=== PATIENT | male | born 1965 | race Asian ===

== ENCOUNTER 2022-11-03 09:47 | Inpatient (IN) | payer MEDICAID, OTHER ==
[2022-11-03] VITALS (15 sets, daily range): BP systolic 53–148; BP diastolic 25–82
[~2022-11-03 09:47] MED LIST: ATOR20TA86; NOCURR
[2022-11-03] MEDS ORDERED: NALOXONE HCL 1 MG/ML 2 ML SYRINGE ONE ×2 (09:54→09:58)
[2022-11-03] MEDS ORDERED: ETOMIDATE 2 MG/ML 10 ML VIAL ONE (09:55)
[2022-11-03] MEDS ORDERED: SODIUM CHLORIDE 0.9% 100 ML ONE (10:09)
[2022-11-03] MEDS ORDERED: IOHEXOL 350 MG/ML 100 ML VIAL ONE (10:09)
[2022-11-03] MEDS ORDERED: PHENYLEPHRINE HCL IN 0.9% NACL 400 MCG/10 ML SYRINGE IVP ONE (10:14)
[2022-11-03] MEDS ORDERED: SODIUM CHLORIDE 0.9% 1,000 ML IV ONE (10:15)
[2022-11-03] MEDS ORDERED: PROPOFOL 1000 MG/ISO-OSM 100 ML IV PRN (10:15)
[2022-11-03] MEDS ORDERED: ETOMIDATE 2 MG/ML 10 ML VIAL IVP ONE (10:15)
[2022-11-03] MEDS ORDERED: ROCURONIUM BROMIDE 10 MG/ML 5 ML VIAL IVP ONE (10:15)
[2022-11-03] MEDS ORDERED: NOREPINEPHRINE 8 MG/D5%-WATER 250 ML IV PRN (10:15)
[2022-11-03] MEDS ORDERED: PHENYLEPHRINE 200 MG/D5%-WATER 250 ML IV PRN (10:45)
[2022-11-03 11:20] LABS: ABG BASE EXCESS 8.2 mmol/L (-2.0-3.0); ABG CARBOXYHEMOGLOBIN 0.3 % (0.0-1.5); ABG HCO3 31.2 mmol/L (22.0-26.0); ABG METHEMOGLOBIN 0.4 % (0.0-1.5); ABG OXYGEN CONTENT 11.1 mL/dL (15.0-23.0); ABG OXYGEN SATURATION 99.1 % (95.0-98.0); ABG OXYHEMOGLOBIN 98.4 % (94.0-100.0); ABG PCO2 68 mmHg (35-45); ABG PH 7.323 (7.35-7.450); ABG TOTAL HEMOGLOBIN 6.9 G/dL (12.0-18.0); O2 DEVICE,BLOOD GAS VENTILATOR (ROOM AIR); PEEP,BG 5 cm H2O; PO2, ARTERIAL BG 523.4 mmHg (84.0-92.0); SITE, BLOOD GAS RT FEMORAL; SOURCE, BLOOD GAS ARTERIAL; SPONTANEOUS VT, BG 453 ml; TEMPERATURE, FAHRENHEIT, BG 97.8 FAHREN (96.0-98.6); VT, ABG 450 ml
[2022-11-03 11:33] LABS: CREATININE 1.53 mg/dL (0.60-1.30); POTASSIUM 4.3 mmol/L (3.5-5.1)
[2022-11-03 11:38] LABS: ALBUMIN 1.5 g/dL (3.4-5.0); BASOPHILS % (AUTO) 0.4 % (0.0-2.0); BILIRUBIN,TOTAL 0.1 mg/dL (0.1-1.0); EOSINOPHILS % (AUTO) 0.7 % (1.0-6.0); LYMPHOCYTES # (AUTO) 1.5 K/uL (1.0-4.8); LYMPHOCYTES % (AUTO) 8.7 % (22.0-44.0); MEAN CORPUSCULAR HEMOGLOBIN 29.1 pg (26.0-34.0); MEAN CORPUSCULAR HGB CONC 30.7 G/dL (31.0-37.0); MEAN CORPUSCULAR VOLUME 95 fL (80-100); MONOCYTES # (AUTO) 0.8 K/uL (0.1-1.0); MONOCYTES % (AUTO) 4.8 % (2.0-9.0); NEUTROPHILS # (AUTO) 14.4 K/uL (1.8-7.7); PLATELET COUNT (AUTO) 217 K/uL (150-450); RED BLOOD CELL COUNT(AUTO) 2.16 MIL/uL (4.50-5.90); TOTAL PROTEIN, SERUM 3.1 g/dL (6.4-8.2)
[2022-11-03 11:44] LABS: HEMATOCRIT 20.5 % (41-53); HEMOGLOBIN 6.3 g/dL (13.5-17.5); NEUTROPHILS % (AUTO) 85.4 % (40.0-70.0)
[2022-11-03 11:45] LABS: LACTIC ACID 13.8 mmol/L (0.4-2.0)
[2022-11-03] MEDS ORDERED: INSULIN LISPRO 100 UNITS/ML SQ PRN (11:45)
[2022-11-03] MEDS ORDERED: ACETAMINOPHEN 325 MG TABLET PO PRN (11:45)
[2022-11-03] MEDS ORDERED: ONDANSETRON HCL 4 MG/2 ML VIAL IVP PRN (11:45)
[2022-11-03] MEDS ORDERED: DEXTROSE 50%-WATER 25 GM/50 ML SYRINGE IVP PRN (11:45)
[2022-11-03 11:55] LABS: INR 1.4 (0.9-1.1); PROTHROMBIN TIME 14.2 SEC (9.4-11.6)
[2022-11-03] MEDS ORDERED: PIPERACILLIN/TAZO 3.375 GM/D5W 50 ML IV SCH (12:00)
[2022-11-03] MEDS: VASOPRESSIN 40 UNITS in DEXTROSE 5%-WATER 98 ML IV PRN ×2 (12:02→21:47)
[2022-11-03] MEDS ORDERED: OCTREOTIDE ACETATE 100 MCG/ML VIAL IVP ONE (12:15)
[2022-11-03] MEDS: OCTREOTIDE ACETATE 500 MCG in SODIUM CHLORIDE 0.9% 97.5 ML IV SCH ×2 (12:49→22:15)
[2022-11-03] MEDS: PANTOPRAZOLE SODIUM 80 MG in SODIUM CHLORIDE 0.9% 100 ML IV SCH ×2 (12:49→21:47)
[2022-11-03] MEDS: PIPERACILLIN/TAZO 3.375 GM/D5W 50 ML IV SCH ×2 (12:50→18:57)
[2022-11-03 13:27] LABS: COVID AG,FIA SOURCE NASAL SWAB
[2022-11-03 13:34] LABS: ABG BASE EXCESS -13.7 mmol/L (-2.0-3.0); ABG CARBOXYHEMOGLOBIN 0.3 % (0.0-1.5); ABG HCO3 14.3 mmol/L (22.0-26.0); ABG METHEMOGLOBIN 0.3 % (0.0-1.5); ABG OXYGEN CONTENT 18.1 mL/dL (15.0-23.0); ABG OXYGEN SATURATION 99.5 % (95.0-98.0); ABG OXYHEMOGLOBIN 98.9 % (94.0-100.0); ABG PCO2 38 mmHg (35-45); ABG TOTAL HEMOGLOBIN 12.1 G/dL (12.0-18.0); PO2, ARTERIAL BG 455.6 mmHg (84.0-92.0); SOURCE, BLOOD GAS ARTERIAL; TEMPERATURE, FAHRENHEIT, BG 93.8 FAHREN (96.0-98.6)
[2022-11-03 13:35] LABS: ABG PH 7.195 (7.35-7.450); SITE, BLOOD GAS ARTERIAL LINE
[2022-11-03 13:36] LABS: ABG A-A DIFF O2 225.7 mmHg (10-20.0); O2 DEVICE,BLOOD GAS VENTILATOR (ROOM AIR); PEEP,BG 5 cm H2O; SPONTANEOUS VT, BG 447 ml; VT, ABG 450 ml
[2022-11-03] MEDS ORDERED: ERYTHROMYCIN LACTOBIONATE 250 MG in SODIUM CHLORIDE 0.9% 100 ML IV ONE (14:45)
[2022-11-03 15:27] LABS: APPEARANCE,URINE HAZY (CLEAR); BILIRUBIN,URINE NEGATIVE (NEGATIVE); GLUCOSE, URINE (UA) 70-100 mg/dL (NEGATIVE); KETONES,URINE NEGATIVE (NEGATIVE); LEUKOCYTE ESTERASE ,URINE NEGATIVE (NEGATIVE); NITRATE,URINE NEGATIVE (NEGATIVE); OCCULT BLOOD,URINE MODERATE (NEGATIVE); PH,URINE 5.5 (5.0-8.0); PROTEIN,URINE 100-200,SEE CONFIRM mg/dL (NEGATIVE); SPECIFIC GRAVITIY, URINE 1.016 (1.003-1.030); UROBILINOGEN,URINE <=1.0 mg/dL (<=1.0)
[2022-11-03] MEDS ORDERED: SODIUM CHLORIDE 0.9% 500 ML IV ONE (15:30)
[2022-11-03 15:36] LABS: CALCIUM, TOTAL 7.5 mg/dL (8.8-10.5); CREATININE 1.83 mg/dL (0.60-1.30); MAGNESIUM 2.2 mg/dL (1.80-2.40); PHOSPHORUS 8.7 mg/dL (2.5-4.9)
[2022-11-03 15:49] LABS: BACTERIA,URINE Few /HPF (None Seen); SQUAMOUS EPITHELIAL CELL,UR Few /LPF (None Seen); WBC,URINE 0-2 /HPF (0-5)
[2022-11-03 15:50] LABS: POTASSIUM 6.9 mmol/L (3.5-5.1)
[2022-11-03 15:50] LABS: SULFOSALICYLIC ACID,URINE 2+ (Negative)
[2022-11-03 15:59] LABS: AMPHET/METH SCREEN,URINE NEGATIVE (NEGATIVE); BARBITURATE SCREEN, URINE NEGATIVE (NEGATIVE); BENZODIAZEPINES SCREEN,URINE NEGATIVE (NEGATIVE); CANNABINOID SCREEN,URINE NEGATIVE (NEGATIVE); COCAINE SCREEN,URINE NEGATIVE (NEGATIVE); METHADONE SCREEN, URINE NEGATIVE (NEGATIVE); OPIATE SCREEN,URINE NEGATIVE (NEGATIVE)
[2022-11-03] MEDS ORDERED: SODIUM BICARBONATE [ADULT] 8.4% 50 MEQ/50 ML SYRINGE IVP ONE ×3 (16:00→21:30)
[2022-11-03] MEDS ORDERED: DEXTROSE 50%-WATER 25 GM/50 ML SYRINGE IVP ONE (16:00)
[2022-11-03] MEDS ORDERED: CALCIUM GLUCONATE 0.465 MEQ/ML 10 ML VIAL IVP ONE (16:00)
[2022-11-03] MEDS ORDERED: INSULIN REGULAR, HUMAN 100 UNITS/ML IVP ONE (16:00)
[2022-11-03 16:02] LABS: PHENCYCLIDINE SCREEN,URINE NEGATIVE (NEGATIVE)
[2022-11-03] MEDS: SODIUM CHLORIDE 0.9% 1,000 ML IV SCH ×2 (16:13→19:43)
[2022-11-03 16:15] LABS: HEMATOCRIT 34.5 % (41-53)
[2022-11-03 17:14] LABS: BASOPHILS % (AUTO) 0.3 % (0.0-2.0); EOSINOPHILS % (AUTO) 0 % (1.0-6.0); HEMATOCRIT 27.4 % (41-53); HEMOGLOBIN 8.7 g/dL (13.5-17.5); LYMPHOCYTES # (AUTO) 1.2 K/uL (1.0-4.8); MEAN CORPUSCULAR HEMOGLOBIN 28.7 pg (26.0-34.0); MEAN CORPUSCULAR HGB CONC 31.6 G/dL (31.0-37.0); MEAN CORPUSCULAR VOLUME 91 fL (80-100); MONOCYTES # (AUTO) 1.1 K/uL (0.1-1.0); MONOCYTES % (AUTO) 5.6 % (2.0-9.0); NEUTROPHILS # (AUTO) 17.2 K/uL (1.8-7.7); RED BLOOD CELL COUNT(AUTO) 3.01 MIL/uL (4.50-5.90)
[2022-11-03 17:21] LABS: NEUTROPHILS % (AUTO) 88.1 % (40.0-70.0)
[2022-11-03] MEDS: EPINEPHrine 2 MG in DEXTROSE 5%-WATER 248 ML IV PRN ×2 (17:49→21:49)
[2022-11-03 17:51] LABS: PLATELET COUNT (AUTO) 151 K/uL (150-450)
[2022-11-03] MEDS: ALBUMIN HUMAN 25%-25GM/100ML 100 ML IV SCH (20:07)
[2022-11-03 20:37] LABS: ALBUMIN 1.5 g/dL (3.4-5.0); BILIRUBIN,TOTAL 0.3 mg/dL (0.1-1.0); CALCIUM, TOTAL 7.5 mg/dL (8.8-10.5); CREATININE 1.91 mg/dL (0.60-1.30); TOTAL PROTEIN, SERUM 2.9 g/dL (6.4-8.2)
[2022-11-03 20:41] LABS: POTASSIUM 6.1 mmol/L (3.5-5.1)
[2022-11-03] MEDS ORDERED: CALCIUM GLUCONATE 100 MG/ML 10 ML IVP ONE ×2 (21:30→23:45)
[2022-11-03] MEDS ORDERED: ALBUMIN HUMAN 25%-50GM/200ML 200 ML IV ONE (21:30)
[2022-11-03] MEDS ORDERED: POTASSIUM CHLORIDE 10 MEQ in NXSTAGE RFP-402 K0/CA3 5,000 ML IRRIG PRN (21:45)
[2022-11-03] MEDS: DOPamine 400MG/D5W[STANDARD] 250 ML IV PRN (22:31)
[2022-11-04] VITALS (16 sets, daily range): BP systolic 57–109; BP diastolic 27–64
[2022-11-04] MEDS: EPINEPHrine 2 MG in DEXTROSE 5%-WATER 248 ML IV PRN ×12 (00:03→17:50)
[2022-11-04] MEDS ORDERED: SODIUM CHLORIDE 0.9% 250 ML IV ONE ×2 (00:07→08:36)
[2022-11-04] MEDS: PIPERACILLIN/TAZO 3.375 GM/D5W 50 ML IV SCH ×4 (00:25→17:49)
[2022-11-04] MEDS ORDERED: CALCIUM GLUCONATE 100 MG/ML 10 ML IVP ONE (00:45)
[2022-11-04] MEDS: ALBUMIN HUMAN 25%-25GM/100ML 100 ML IV SCH ×3 (01:42→14:18)
[2022-11-04] MEDS ORDERED: PHENYLEPHRINE 200 MG/D5%-WATER 250 ML IV PRN (03:00)
[2022-11-04] MEDS ORDERED: VASOPRESSIN 40 UNITS in DEXTROSE 5%-WATER 98 ML IV PRN (03:00)
[2022-11-04] MEDS: NOREPINEPHRINE 8 MG/D5%-WATER 250 ML IV PRN ×5 (03:16→16:40)
[2022-11-04 04:26] LABS: GLUCOSE,POINT OF CARE 462 MG/DL (70-110)
[2022-11-04 06:50] LABS: MEAN CORPUSCULAR HEMOGLOBIN 29.9 pg (26.0-34.0); MEAN CORPUSCULAR HGB CONC 32.6 G/dL (31.0-37.0); MEAN CORPUSCULAR VOLUME 92 fL (80-100); PLATELET COUNT (AUTO) 40 K/uL (150-450); RED BLOOD CELL COUNT(AUTO) 0.96 MIL/uL (4.50-5.90); RED CELL DISTRIBUTION WIDTH 15.4 % (11.5-14.5)
[2022-11-04 07:00] LABS: HEMOGLOBIN 2.9 g/dL (13.5-17.5)
[2022-11-04 07:01] LABS: HEMATOCRIT 8.8 % (41-53)
[2022-11-04 07:07] LABS: ALBUMIN 2.1 g/dL (3.4-5.0); BILIRUBIN,TOTAL 0.4 mg/dL (0.1-1.0); CREATININE 1.93 mg/dL (0.60-1.30); TOTAL PROTEIN, SERUM 2.8 g/dL (6.4-8.2)
[2022-11-04 07:10] LABS: POTASSIUM 2.9 mmol/L (3.5-5.1)
[2022-11-04 08:00] LABS: BAND NEUTROPHILS % (MANUAL) 10 % (0-5); EOSINOPHILS % (MANUAL) 3 % (1-6); LYMPHOCYTES % (MANUAL) 14 % (22-44); MONOCYTES % (MANUAL) 4 % (2-9); SEGMENTED NEUTROPHILS % 69 % (40-70)
[2022-11-04] MEDS: OCTREOTIDE ACETATE 500 MCG in SODIUM CHLORIDE 0.9% 97.5 ML IV SCH ×2 (08:15→17:53)
[2022-11-04] MEDS: PANTOPRAZOLE SODIUM 80 MG in SODIUM CHLORIDE 0.9% 100 ML IV SCH ×2 (08:33→17:53)
[2022-11-04 08:54] LABS: HEMATOCRIT 7.2 % (41-53); HEMOGLOBIN 2.4 g/dL (13.5-17.5)
[2022-11-04] MEDS ORDERED: POTASSIUM CHLORIDE 20 MEQ in NXSTAGE RFP-402 K0/CA3 5,000 ML IRRIG PRN (10:40)
[2022-11-04] MEDS ORDERED: PHYTONADIONE 5 MG in SODIUM CHLORIDE 0.9% 50 ML IV ONE (10:45)
[2022-11-04 11:22] LABS: ABG BASE EXCESS -9.4 mmol/L (-2.0-3.0); ABG CARBOXYHEMOGLOBIN 1.3 % (0.0-1.5); ABG HCO3 17.3 mmol/L (22.0-26.0); ABG METHEMOGLOBIN 0.3 % (0.0-1.5); ABG OXYGEN CONTENT 7.8 mL/dL (15.0-23.0); ABG OXYGEN SATURATION 99.8 % (95.0-98.0); ABG OXYHEMOGLOBIN 98.2 % (94.0-100.0); ABG PCO2 30 mmHg (35-45); ABG PH 7.353 (7.35-7.450); PO2, ARTERIAL BG 286.2 mmHg (84.0-92.0); SOURCE, BLOOD GAS ARTERIAL; TEMPERATURE, FAHRENHEIT, BG 88.9 FAHREN (96.0-98.6)
[2022-11-04 11:24] LABS: O2 DEVICE,BLOOD GAS VENTILATOR (ROOM AIR); SITE, BLOOD GAS ARTERIAL LINE
[2022-11-04 11:26] LABS: PEEP,BG 5 cm H2O; VT, ABG 450 ml
[2022-11-04] MEDS: DOPamine 400MG/D5W[STANDARD] 250 ML IV PRN (11:59)
[2022-11-04 12:02] LABS: CALCIUM, TOTAL 6.9 mg/dL (8.8-10.5); CREATININE 1.59 mg/dL (0.60-1.30); MAGNESIUM 1.3 mg/dL (1.80-2.40); PHOSPHORUS 2.2 mg/dL (2.5-4.9)
[2022-11-04 12:34] LABS: INR 2.7 (0.9-1.1); PROTHROMBIN TIME 27.6 SEC (9.4-11.6)
[2022-11-04] MEDS ORDERED: SODIUM CHLORIDE 0.9% 1,000 ML ONE (13:02)
[2022-11-04] MEDS ORDERED: MAGNESIUM SULFATE 2 GM/WATER 50 ML IV ONE (15:30)
[2022-11-04] MEDS ORDERED: CALCIUM GLUCONATE 1,000 MG in DEXTROSE 5%-WATER 50 ML IV SCH (16:00)
[2022-11-04] MEDS ORDERED: EPINEPHrine 1:10,000 [1 MG/10 ML] SYRINGE IVP ONE (16:08)
[2022-11-04] MEDS ORDERED: 0.9% SODIUM CHLORIDE 10 ML SYRINGE IVP ONE (16:08)
[2022-11-04] MEDS ORDERED: SODIUM BICARBONATE [ADULT] 8.4% 50 MEQ/50 ML SYRINGE IVP ONE (16:08)
[2022-11-04 16:51] LABS: HEMOGLOBIN 4.4 g/dL (13.5-17.5)
[2022-11-04 16:52] LABS: HEMATOCRIT 13.4 % (41-53)
[2022-11-04 18:31] LABS: GLUCOSE,POINT OF CARE 478 MG/DL (70-110)
== END 2022-11-04 19:25 | DRG 253 ==
LOC: EMS 09:55 → ICU 19:00
PROVIDERS: ADMIT Internal Medicine; ATTEND Internal Medicine
PROC: 0BH17EZ Insertion of Endotracheal Airway into Trachea, Via Natural or Artificial Opening (ICD-10-PCS; 2022-11-03)
PROC: 30233N1 Transfusion of Nonautologous Red Blood Cells into Peripheral Vein, Percutaneous Approach (ICD-10-PCS; 2022-11-03)
PROC: 30233K1 Transfusion of Nonautologous Frozen Plasma into Peripheral Vein, Percutaneous Approach (ICD-10-PCS; 2022-11-03)
PROC: 04HY32Z Insertion of Monitoring Device into Lower Artery, Percutaneous Approach (ICD-10-PCS; 2022-11-03)
PROC: 06HY33Z Insertion of Infusion Device into Lower Vein, Percutaneous Approach (ICD-10-PCS; 2022-11-03)
PROC: B54BZZA Ultrasonography of Right Lower Extremity Veins, Guidance (ICD-10-PCS; 2022-11-03)
PROC: 3E0G8GC Introduction of Other Therapeutic Substance into Upper GI, Via Natural or Artificial Opening Endoscopic (ICD-10-PCS; 2022-11-03)
PROC: 5A1945Z Respiratory Ventilation, 24-96 Consecutive Hours (ICD-10-PCS; principal; 2022-11-03 15:55)
DX: K92.2 Gastrointestinal hemorrhage, unspecified (principal); J96.01 Acute respiratory failure with hypoxia; I46.9 Cardiac arrest, cause unspecified; R57.8 Other shock; R57.1 Hypovolemic shock; I21.4 Non-ST elevation (NSTEMI) myocardial infarction; D68.9 Coagulation defect, unspecified; E87.1 Hypo-osmolality and hyponatremia; E87.20 Acidosis, unspecified; D62 Acute posthemorrhagic anemia; E87.6 Hypokalemia; N17.9 Acute kidney failure, unspecified; Z20.822 Contact with and (suspected) exposure to COVID-19; E11.9 Type 2 diabetes mellitus without complications; E78.5 Hyperlipidemia, unspecified; E87.5 Hyperkalemia; F20.9 Schizophrenia, unspecified; F31.9 Bipolar disorder, unspecified; S01.81XA Laceration without foreign body of other part of head, initial encounter; R74.01 Elevation of levels of liver transaminase levels; W18.39XA Other fall on same level, initial encounter; Y93.89 Activity, other specified; Z79.899 Other long term (current) drug therapy; Z99.11 Dependence on respirator [ventilator] status; Y92.89 Other specified places as the place of occurrence of the external cause; Y99.8 Other external cause status
CPT/HCPCS: 31500; 36600; 51702; 71045; 78606; 80048; 80053; 80307; 81001; 81002; 82271; 82805; 82948; 82962; 83605; 83735; 84100; 84484; 85014; 85018; 85025; 85610; 85730; 86850; 86900; 86901; 86920; 86923; 86927; 90947; 93005; 93306; 93970; 94002; 94003; 99291; 99292; A9521; C9113; G0378; J0171; J0610; J1265; J1364; J1815; J2310; J2354; J2370; J2543; J3430; J3475; J3480; J3490; J7030; J7050; J7060; P9016; P9017; P9046; Q9967; 36415-L1; 36415-TC; 70450; 70450-TC